=== PATIENT | male | born 1975 | race Caucasian/White ===

== ENCOUNTER → 2019-08-14 09:48 | Outpatient (CLI) | payer OTHER, SELFPAY ==
--- NOTE | 2019-08-14 09:53 | XR_ITS ---
PROCEDURE: XR HAND RT MIN 3V CLINICAL INDICATION: Rt hand FX patient punched a wall, pain and swelling COMPARISON: No exams were available for comparison FINDINGS: There is a boxer's type fracture distal metaphysis of the 5th metacarpal with mild at the fracture site. The remainder metacarpals in all of phalanges appear intact. The carpal bones appear grossly normal. There is mild diffuse soft tissue swelling dorsally of the hand. IMPRESSION: Boxer's type fracture 5th metacarpal Dictated by: Dr. Brandon Chi MD 08/14/2019 10:[address] Brandon Chi MD in [place] 08/14/2019 10:10
== END ==
PROVIDERS: Visit Provider Orthopaedic Surgery
DX: S62.331A Displaced fracture of neck of second metacarpal bone, left hand, initial encounter for closed fracture (principal)
CPT/HCPCS: 73130

== ENCOUNTER → 2019-08-14 12:01 | Outpatient (CLI) | payer OTHER, SELFPAY ==
[2019-08-14 12:28] LABS: Basophils # 0.1 K/mm3 (0-0.2); Basophils % 1.3 % (0.1-2.0); Eosinophils # 0.2 K/mm3 (0.0-0.4); Eosinophils % 2.7 % (0.1-12.0); Hematocrit 50.4 % (42.0-52.0); Hemoglobin 16.7 g/dL (14.1-18.0); Lymphocytes # 3.4 K/mm3 (0.7-4.5); Lymphocytes % 44.6 % (10-50); Mean Corpuscular HGB Conc 33.1 g/dL (31.8-35.4); Mean Corpuscular Hemoglobin 30.9 pg (27.0-31.2); Mean Corpuscular Volume 93.4 fl (80-94); Mean Platelet Volume 8.3 fl (7.4-10.4); Monocytes # 0.7 K/mm3 (0.1-1.0); Monocytes % 9.8 % (1.7-9.3); Neutrophils # 3.2 K/mm3 (1.8-7.8); Neutrophils % 41.5 % (37.0-80.0); Platelet Count 320 K/mm3 (142-424); Red Cell Distribution Width 12.6 % (11.5-17.5); White Blood Count 7.6 K/mm3 (4.8-10.8)
[2019-08-14 15:16] LABS: Alanine Aminotransferase 31 U/L (12-78); Albumin Level 4.3 gm/dL (3.4-5.0); Albumin/Globulin Ratio 1.2 (1.1-1.8); Alkaline Phosphatase 111 U/L (46-116); Anion Gap 13.4 mEq/L (5-15); Aspartate Amino Transferase 16 U/L (15-37); Bilirubin,Total 0.4 mg/dL (0.2-1.0); Blood Urea Nitrogen 10 mg/dL (7-18); Calcium 9.4 mg/dL (8.5-10.1); Carbon Dioxide 30 mmol/L (21.0-32.0); Chloride 101 mmol/L (98-107); Creatinine,Serum 0.92 mg/dL (0.70-1.30); Estimated Glomerular Filt Rate 89 ml/min (>60); GFR (African American) 108 ML/MIN (>60); Globulin 3.7 gm/dl (1.3-3.2); Glucose 94 mg/dL (74-106); Potassium 4.4 mmoL/L (3.5-5.1); Sodium 140 mmol/L (136-145)
== END ==
PROVIDERS: Visit Provider Orthopaedic Surgery
DX: Z01.818 Encounter for other preprocedural examination (principal); S62.331A Displaced fracture of neck of second metacarpal bone, left hand, initial encounter for closed fracture
CPT/HCPCS: 36415; 80053; 85025

== ENCOUNTER → 2019-08-27 09:39 | Outpatient (CLI) | payer OTHER, SELFPAY ==
--- NOTE | 2019-08-27 09:46 | XR_ITS ---
PROCEDURE: XR HAND RT MIN 3V CLINICAL INDICATION: Hand Fx FU Follow-up fracture COMPARISON: XR HAND RT MIN 3V from 08/07/2019 XR HAND RT MIN 3V from 08/14/2019 XR HAND RT 2V from 08/19/2019 FINDINGS: There is a splint present medially. In external pin has been placed longitudinal E into the 5th metacarpal stabilizing the distal fracture fragment with good alignment and only minimal palm all arm and radial displacement of the distal fracture fragment. IMPRESSION: Good alignment status post pinning 5th metacarpal fracture Dictated by: Saúl Merino MD 08/27/2019 10:15 Electronically signed by Saúl Merino MD in [place] 08/27/2019 10:15
== END ==
PROVIDERS: Visit Provider Orthopaedic Surgery
DX: S62.331A Displaced fracture of neck of second metacarpal bone, left hand, initial encounter for closed fracture (principal)
CPT/HCPCS: 73130

== ENCOUNTER → 2019-09-14 14:49 | Outpatient (CLI) | payer OTHER, SELFPAY ==
--- NOTE | 2019-09-14 14:54 | XR_ITS ---
PROCEDURE: XR HAND RT MIN 3V CLINICAL INDICATION: Hand Fracture Follow-up fracture COMPARISON: XR HAND RT MIN 3V from 08/07/2019 XR HAND RT MIN 3V from 08/14/2019 XR HAND RT 2V from 08/19/2019 XR HAND RT MIN 3V from 08/27/2019 FINDINGS: There remains good alignment of the minimally displaced fracture the distal aspect of the 5th metacarpal with a pen in place. There is developing callus formation. IMPRESSION: Healing 5th metacarpal fracture status post pin placement Dictated by: Saúl Merino MD 09/14/2019 16:23 Electronically signed by Saúl Merino MD in [place] 09/14/2019 16:23
== END ==
PROVIDERS: Visit Provider Orthopaedic Surgery
DX: S62.339A Displaced fracture of neck of unspecified metacarpal bone, initial encounter for closed fracture (principal)
CPT/HCPCS: 73130

== ENCOUNTER → 2019-10-05 14:00 | Outpatient (CLI) | payer OTHER, SELFPAY ==
--- NOTE | 2019-10-05 14:08 | XR_ITS ---
PROCEDURE: XR HAND RT MIN 3V CLINICAL INDICATION: Hand Fx COMPARISON: XR HAND RT MIN 3V from 08/14/2019 XR HAND RT 2V from 08/19/2019 XR HAND RT MIN 3V from 08/27/2019 XR HAND RT MIN 3V from 09/14/2019 FINDINGS: There has been interval removal of the reduction wire associated with the 5th metacarpal fracture. There is some interval callus formation of healing of the fracture but the fracture line remains. Overall bony alignment and positioning is not significantly changed. There are no new findings otherwise. The joint spaces are well-preserved. No significant degenerative/arthritic changes. No erosive changes evident. Other findings: IMPRESSION: Interval removal of reduction wire with healing 5th metacarpal fracture. Dictated by: Dev Burrell 10/05/2019 16:29 Electronically signed by Dev Burrell in [place] 10/05/2019 16:29
== END ==
PROVIDERS: Visit Provider Orthopaedic Surgery
DX: S62.306A Unspecified fracture of fifth metacarpal bone, right hand, initial encounter for closed fracture (principal)
CPT/HCPCS: 73130

== ENCOUNTER 2019-10-13 08:30 | Outpatient (RCR) | payer OTHER, SELFPAY | END 2019-10-13 08:35 | disposition home or self-care (01) | LOC: OT 08:30 | PROVIDERS: Visit Provider Orthopaedic Surgery | DX: S62.339A Displaced fracture of neck of unspecified metacarpal bone, initial encounter for closed fracture (principal) | CPT/HCPCS: 97110; 97140; 97166; 97760 ==

== ENCOUNTER → 2019-11-09 14:35 | Outpatient (CLI) | payer OTHER, SELFPAY ==
--- NOTE | 2019-11-09 14:37 | XR_ITS ---
PROCEDURE: XR HAND RT MIN 3V CLINICAL INDICATION: Hand FX Follow-up fracture COMPARISON: XR HAND RT 2V from 08/19/2019 XR HAND RT MIN 3V from 08/27/2019 XR HAND RT MIN 3V from 09/14/2019 XR HAND RT MIN 3V from 10/05/2019 FINDINGS: The oblique fracture at the distal aspect of the 5th metacarpal is less apparent. There is developing callus formation. There is good alignment. The joint spaces are well-preserved. No significant degenerative/arthritic changes. No erosive changes evident. Other findings:None. IMPRESSION: Good alignment healing right 5th metacarpal Dictated by: Saúl Merino MD 11/09/2019 15:33 Electronically signed by Saúl Merino MD in [place] 11/09/2019 15:33
== END ==
PROVIDERS: Visit Provider Orthopaedic Surgery
DX: S62.306A Unspecified fracture of fifth metacarpal bone, right hand, initial encounter for closed fracture (principal)
CPT/HCPCS: 73130

== ENCOUNTER 2020-07-14 00:09 | Emergency (ER) | payer OTHER, SELFPAY ==
--- NOTE | 2020-07-14 00:19 | PC.NURSE ---
PT came in the ED and advised that he thought he had ringworm on his shoulder. Asked patient to raise his shirt so I could examine the area. Pt raised his shirt and there was no robyn area or anything noted on his skin. I told pt that I did not see anything and asked him to come to the bathroom to look and show me exactly what he was talking about. Pt looked at his back in the mirror and didn't see anything. He advised he was worried that he had a ringworm and was contagious. But since he didn't see anything he decided he didn't need to be seen and left before being triaging.
[2020-07-14 00:46] VITALS: BP 0/0; PULSE 0; RESP 0; TEMP -17.7; TEMP 0; O2SAT 0
== END 2020-07-14 00:47 | disposition home or self-care (01) ==
PROVIDERS: Emergency Provider Emergency Medicine
DX: Z53.21 Procedure and treatment not carried out due to patient leaving prior to being seen by health care provider (principal)
CPT/HCPCS: 99211

== ENCOUNTER 2021-01-03 23:47 | Emergency (ER) | payer OTHER, SELFPAY ==
[2021-01-04 00:07] VITALS: BP 143/90; PULSE 80; RESP 16; TEMP 37; O2SAT 99; BMI 25.7
--- NOTE | 2021-01-04 00:27 | XR_ITS ---
PROCEDURE: XR FOREARM LT 2V CLINICAL INDICATION: posable foreign body COMPARISON: No exams were available for comparison FINDINGS: No fracture or dislocation. No lytic or blastic change. There is normal mineralization. The joint spaces are well-preserved. No significant degenerative/arthritic changes. No erosive changes evident. Other findings:No radiopaque foreign body apparent IMPRESSION: No acute findings. Dictated by: Súal Merino MD 01/04/2021 05:27 Saúl Merino MD in [place] 01/04/2021 05:27
--- NOTE | 2021-01-04 00:58 | HMH.EDUPEXT ---
ED Disposition Clinical Impression: Puncture wound Exposure to welding light Qualifiers: Encounter type: initial encounter Qualified Code(s): W89.0XXA - Exposure to welding light (arc), initial encounter Disposition: Home, Self-Care Condition on Discharge: Good Instructions: DI for Puncture Wound Additional Instructions: fluids and see pcp for follow up Referrals: PCP,No [Primary Care Provider] - - Critical Care Critical Care Time: No Attestation: On 01/03/21, the high probability of a clinically significant, sudden or life threatening deterioration of the following system(s) required my full and direct attention, intervention and personal management. The time I documented below is in addition to time spent performing reported procedures but includes the following listed in this critical care notation. Medical Decision Making - Medical Records Medical records reviewed: Yes: I reviewed the patient's medical records. - Juan M Inquiry Pt receiving controlled substance: No Vital Signs: 01/04/21 00:07 Temperature 98.6 F Temperature Source Oral Pulse Rate [Right] 80 Respiratory Rate 16 Blood Pressure [Right Arm] 143/90 H Blood Pressure Mean [Right Arm] 107 Blood Pressure Source [Right Arm] Automatic Cuff Blood Pressure Position [Right Arm] Sitting 02 Sat by Pulse Oximetry 99 Oxygen Delivery Method Room Air Orders (Tests/Meds): ORDERS Category Date Time Status XR forearm LT 2V Stat Exams 01/04/21 00:27 Taken - Radiology Data #1 Image(s): Forearm Image Reviewed: Yes I reviewed the patient's radiology image Preliminary Findings: No Fracture Seen Medical Decision Narrative: not cellulitis = has simple puncture wd and skin changes sec to u/v exposure Upper Extremity HPI - General Chief Complaint: Extremity Injury, Upper Stated Complaint: Left arm red,had piece of wire in arm Time Seen by Provider: 01/04/21 00:35 Mode of Arrival: Ambulatory Source of Information: Patient, Medical Record Limitations: No Limitations Description of Symptoms (Recalled from ER Triage Doc. by RN): Pt states he had a wire from a steel welder penatrate his left forearm and now has redness to the top of his forearm, pt unsure if it's from the puncture or burned from welding. - History of Present Illness HPI narrative: puncture wd lt ulnar volar aspect of wrist - but also reddness to opposite side of lt forearm MD complaint: injury to: left, forearm Onset (ago): hour(s) Other Extremity Injury: Left: wrist Other injuries: none Handedness: right Place: home Severity: mild Context: other (welding ) Associated symptoms: denies other symptoms - Related Data Home Medications Medication Instructions Recorded Confirmed No Known Home Medications 01/04/21 01/04/21 Allergies Allergy/AdvReac Type Severity Reaction Status Date / Time No Known Allergies Allergy Verified 11/09/19 15:11 [facility] History - Hepatitis A Screen Drug use history?: No High risk sexual behaviors?: No History of sexually transmitted infection?: No Currently employed?: No Childcare worker?: No Do you have indoor plumbing?: Yes Do you have electricity?: Yes Attestation statement:: This patient has been screened for Hepatitis A risk factors. I have reviewed the patient's past medical history: Yes Medical History: Denies:: Cancer, Diabetes Mellitus Type 1, Diabetes Mellitus Type 2, Internal Pacemaker, MRSA, Seizures Other Medical History: Denies: Blood Transfusion Reaction Laterality Cases: Bilateral: Tonsillectomy Other Surgeries: Yes: Appendectomy, Other. No: Pacemaker Amputation: No Fractures: Yes Comment: Right hand FX - Social History Smoking Status: Former smoker Tobacco Type: cigarettes # Packs/Day (cigarettes): 1 Alcohol Intake: never Substance Use Type: denies use Occupational Status: unemployed Housing: house Household Members: spouse Family Hx:: Heart Attack ROS Obtained: Yes All systems revi
[2021-01-04 01:21] VITALS: BP 136/82; PULSE 82; RESP 16; TEMP 37; O2SAT 98
== END 2021-01-04 01:23 | disposition home or self-care (01) ==
PROVIDERS: Emergency Provider Emergency Medicine
DX: S51.832A Puncture wound without foreign body of left forearm, initial encounter (principal); W89.0XXA Exposure to welding light (arc), initial encounter; Z23 Encounter for immunization; Z87.891 Personal history of nicotine dependence
CPT/HCPCS: 73090; 90471; 90714; 99282

== ENCOUNTER 2021-03-15 13:31 | Emergency (ER) | payer OTHER, SELFPAY ==
[2021-03-15 13:35] VITALS: BP 136/87; PULSE 78; RESP 19; TEMP 37.2; O2SAT 100; BMI 26.4
--- NOTE | 2021-03-15 14:42 | HMH.EDUTC ---
[facility] [place] Disposition Clinical Impression: Nausea vomiting and diarrhea Disposition: Home, Self-Care Condition on Discharge: Good Instructions: Diarrhea, DI for Nausea -- Adult, Nausea and Vomiting-Adult Additional Instructions: Drink extra fluids with and between meals. If you have difficulty drinking, try very small amounts of water or suck on ice chips. ? Avoid fruit juices, as these do not replace minerals and can actually increase diarrhea. ? Children and adults can use sports drinks to replenish electrolytes. Younger children and infants should use products formulated for children, like oral rehydration solutions. ? Eat food in small amounts and let your stomach recover. ? Get lots of rest. You may feel tired or weak. ? No greasy or fried foods for the next 24-48 hours BRAT diet Bananas Rice Apples and [place] ? Make sure to drink plenty of liquids ? Return if needed ? Straight to ER if any life threatening symptoms ? Zofran as prescribed ? You was given an outpatient order for diarrhea panel, please collect specimen and bring back to outpatient lab then call back to the [facility] or follow up with family doctor for results ? Follow up with family doctor in the next 48-72 hours if no improvement or any worsening of symptoms Prescriptions: Dicyclomine HCl [Bentyl 10mg capsule] 10 mg PO TID PRN #15 cap PRN Reason: Cramping Transmission Status: Pending to [id number] Ondansetron [Zofran 4mg ODT] 4 mg PO TIDP PRN #10 tab PRN Reason: Nausea And Vomiting Transmission Status: Pending to [id number] Referrals: Provider,Referral, MD [Primary Care Provider] - As needed Time of Disposition: 14:45 Medical Decision Making - Juan M Inquiry Pt receiving controlled substance: No Juan M was queried for this patient: No Vital Signs: 03/15/21 13:35 Temperature 99.0 F Temperature Source Oral Pulse Rate [Right Brachial] 78 Respiratory Rate 19 Blood Pressure [Right Arm] 136/87 Blood Pressure Mean [Right Arm] 103 Blood Pressure Source [Right Arm] Automatic Cuff Blood Pressure Position [Right Arm] Sitting 02 Sat by Pulse Oximetry 100 Oxygen Delivery Method Room Air Medical Decision Narrative: No vomiting or diarrhea since arrival [facility] [place] HPI - General Stated complaint: nausea, vomiting Time Seen by Provider: 03/15/21 14:42 Mode of Arrival: Ambulatory Source of Information: Patient Limitations: No Limitations Description of Symptoms (Recalled from Triage Doc. by RN): PATIENT C/O VOMITING AND DIARRHEA SINCE 0500 THIS MORNING HEENT Symptoms (Recalled from RN notes): No Resp Symptoms (Recalled from RN notes): No Skin Symptoms (Recalled from RN notes): No MS Symptoms (Recalled from RN notes): No Functional Status (Recalled from RN notes): WNL - History of Present Illness Provider Complaint: Patient states that his grandchild recently had a stomach bug and he was around it State that he woke up this morning with nausea vomiting and diarrhea States that he was concerned if he didnt come in and get something for the vomiting he would get dehydrated so he came in - Related Data Previous Rx's Medication Instructions Recorded Dicyclomine HCl [Bentyl 10mg 10 mg PO TID PRN #15 cap 03/15/21 capsule] Ondansetron [Zofran 4mg ODT] 4 mg PO TIDP PRN #10 tab 03/15/21 Allergies Allergy/AdvReac Type Severity Reaction Status Date / Time No Known Allergies Allergy Verified 11/09/19 15:11 - Worker's Comp Is this a Worker's Comp case?: No [facility] History - Hepatitis A Screen Drug use history?: No High risk sexual behaviors?: No History of sexually transmitted infection?: No Currently employed?: No Childcare worker?: No Do you have indoor plumbing?: Yes Do you have electricity?: Yes Attestation statement:: This patient has been screened for Hepatitis A risk factors. I have reviewed the patient's past medical history: Yes Medical History: Denies:: Cancer, Diabetes Mellitus Type 1, Diabet
[2021-03-15 14:47] VITALS: BP 136/87; PULSE 78; RESP 19; TEMP 37.2; O2SAT 100
== END 2021-03-15 14:51 | disposition home or self-care (01) ==
PROVIDERS: Emergency Provider Nurse Practitioner
DX: R11.2 Nausea with vomiting, unspecified (principal); R19.7 Diarrhea, unspecified; F17.210 Nicotine dependence, cigarettes, uncomplicated; Z87.891 Personal history of nicotine dependence
CPT/HCPCS: 99202; G0463

== ENCOUNTER 2021-06-10 10:36 | Emergency (ER) | payer OTHER, SELFPAY ==
[2021-06-10 10:36] VITALS: BP 130/71; PULSE 75; RESP 16; TEMP 36.9; O2SAT 99; BMI 29.0
--- NOTE | 2021-06-10 11:20 | HMH.EDUTC ---
[facility] [place] Disposition Clinical Impression: Exposure to COVID-19 virus Disposition: Home, Self-Care Condition on Discharge: Good Instructions: DI for COVID-19 (Suspected or Confirmed ), Preventing the Spread of Coronavirus Discharge Instructions Additional Instructions: Drink plenty of fluids. Take tylenol for pain or fever. Return if you begin to have difficulty breathing. Follow up with your regular doctor. GO TO THE ER FOR ANY WORSENING SYMPTOMS Quarantine until you know the results of your covid-19 test. If it is positive, the health department should call you and give you further instructions about your length of Quarantine and other thing. Referrals: Jacob Altamirano MD [Primary Care Provider] - Time of Disposition: 11:22 Medical Decision Making - Medical Records Medical records reviewed: No: I reviewed the patient's medical records. - Juan M Inquiry Pt receiving controlled substance: No Vital Signs: 06/10/21 10:36 06/10/21 12:00 Temperature 98.4 F 98.4 F Temperature Source Oral Pulse Rate 75 Pulse Rate [Right Radial] 75 Respiratory Rate 16 16 Blood Pressure 130/71 Blood Pressure [Right Arm] 130/71 Blood Pressure Mean [Right Arm] 90 Blood Pressure Source [Right Arm] Automatic Cuff Blood Pressure Position [Right Arm] Sitting 02 Sat by Pulse Oximetry 99 Oxygen Delivery Method Room Air [facility] [place] HPI - General Stated complaint: wants Covid test Time Seen by Provider: 06/10/21 11:20 - History of Present Illness Provider Complaint: He was exposed to covid-19 by his grand child coming to his house and he was around her. His exposure happened 4 days ago. He denies any symptoms so far. He has not been vaccinated. - Related Data Previous Rx's Medication Instructions Recorded Dicyclomine HCl [Bentyl 10mg 10 mg PO TID PRN #15 cap 03/15/21 capsule] Ondansetron [Zofran 4mg ODT] 4 mg PO TIDP PRN #10 tab 03/15/21 Allergies Allergy/AdvReac Type Severity Reaction Status Date / Time No Known Allergies Allergy Verified 11/09/19 15:11 [facility] History - Hepatitis A Screen Attestation statement:: This patient has been screened for Hepatitis A risk factors. I have reviewed the patient's past medical history: Yes Medical History: Denies:: Cancer, Diabetes Mellitus Type 1, Diabetes Mellitus Type 2, Internal Pacemaker, MRSA, Seizures Other Medical History: Denies: Blood Transfusion Reaction Laterality Cases: Bilateral: Tonsillectomy Other Surgeries: Yes: Appendectomy, Other. No: Pacemaker Amputation: No Fractures: Yes Comment: Right hand FX - Social History Smoking Status: Former smoker Tobacco Type: cigarettes # Packs/Day (cigarettes): 1 Alcohol Intake: never Substance Use Type: denies use Occupational Status: other Housing: house Household Members: spouse Family Hx:: Heart Attack ROS Obtained: Yes All systems reviewed & no additional complaints - Constitutional Constitutional: Reports system reviewed and no additional complaints, except as docu - Eyes Eyes: Reports system reviewed and no additional complaints, except as docu - ENT Ears, Nose, Mouth, and Throat: Reports system reviewed and no additional complaints, except as docu - Cardiovascular Cardiovascular: Reports system reviewed and no additional complaints, except as docu - Respiratory Respiratory: Reports system reviewed and no additional complaints, except as docu - Gastrointestinal Gastrointestingal: Reports: system reviewed and no additional complaints, except as docu Physical Exam - General General appearance: alert, in no apparent distress - Head Head exam: atraumatic, normocephalic, normal inspection - Eye Eye exam: Present: normal appearance, PERRL, EOMI - ENT ENT exam: Present: normal exam, normal oropharynx, mucous membranes moist, TM's normal bilaterally, normal external ear exam - Neck Neck exam: Present: normal inspection, full ROM, trachea midline. Absent:
[2021-06-10 12:00] VITALS: BP 130/71; PULSE 75; RESP 16; TEMP 36.9; O2SAT 99
== END 2021-06-10 12:00 | disposition home or self-care (01) ==
PROVIDERS: Emergency Provider Nurse Practitioner Family; PCP Emergency Medicine
DX: Z20.822 Contact with and (suspected) exposure to COVID-19 (principal)
CPT/HCPCS: 99202; G0463; U0003

== ENCOUNTER 2022-09-24 01:59 | Emergency (ER) | payer OTHER, SELFPAY ==
[2022-09-24 02:00] VITALS: BP 146/101; PULSE 110; RESP 18; TEMP 36.9; O2SAT 97; BMI 27.7
[2022-09-24 02:24] LABS: Basophils # 0.1 K/mm3 (0-0.2); Basophils % 0.8 % (0.1-2.0); Eosinophils # 0.2 K/mm3 (0.0-0.4); Eosinophils % 2.2 % (0.1-12.0); Hematocrit 52.2 % (42.0-52.0); Hemoglobin 17.6 g/dL (14.1-18.0); Lymphocytes # 2.7 K/mm3 (0.7-4.5); Lymphocytes % 24.7 % (10-50); Mean Corpuscular HGB Conc 33.8 g/dL (31.8-35.4); Mean Corpuscular Hemoglobin 30.6 pg (27.0-31.2); Mean Corpuscular Volume 90.6 fl (80-94); Mean Platelet Volume 8.4 fl (7.4-10.4); Monocytes # 1.1 K/mm3 (0.1-1.0); Monocytes % 10.3 % (1.7-9.3); Neutrophils # 6.9 K/mm3 (1.8-7.8); Platelet Count 352 K/mm3 (142-424); Red Blood Count 5.76 M/mm3 (4.60-6.20); Red Cell Distribution Width 12.9 % (11.5-17.5); White Blood Count 11.1 K/mm3 (4.8-10.8)
[2022-09-24 02:30] LABS: Chloride 107 mmol/L (98-107); Potassium 4.2 mmoL/L (3.5-5.1); Sodium 142 mmol/L (136-145)
[2022-09-24 02:33] LABS: Alanine Aminotransferase 53 U/L (12-78); Albumin/Globulin Ratio 1.3 (1.1-1.8); Alkaline Phosphatase 124 U/L (38-126); Anion Gap 17.2 mEq/L (5-15); Aspartate Amino Transferase 48 U/L (17-59); Bilirubin,Total 0.4 mg/dl (0.2-1.3); Blood Urea Nitrogen 15 mg/dl (9-20); Carbon Dioxide 22 mmol/L (22.0-30.0); Creatinine Clearance Estimated 95 mL/min (50-200); Estimated Glomerular Filt Rate 59 ml/min (>60); GFR (African American) 72 ML/MIN (>60)
[2022-09-24 02:34] LABS: Calcium 9.7 mg/dl (8.4-10.2); Glucose 142 mg/dl (74-100)
--- NOTE | 2022-09-24 03:00 | HMH.EDNVD ---
Discharge Plan Disposition Patient Disposition: Home, Self-Care Prescriptions Prescriptions: New ondansetron HCl 4 mg Tablet 4 mg PO Q8H PRN (Reason: Nausea) Qty: 20 0RF No Action ondansetron 4 MG tablet,disintegrating 4 mg PO TIDP PRN (Reason: Nausea And Vomiting) Qty: 10 0RF dicyclomine 10 MG capsule 10 mg PO TID PRN (Reason: Cramping) Qty: 15 0RF Referrals Follow up/Referrals: Jacob Altamirano MD [Primary Care Provider] - See instructions Clinical Impressions Clinical Impression: Gastroenteritis Instructions Patient Instructions: DI for Diarrhea and Traveler's Diarrhea -- Adult Discharge ED Provider: Jacob Altamirano Nausea/Vomiting/Diarrhea HPI General Chief complaint: Nausea/Vomiting/Diarrhea Stated complaint: vomiting, diarrhea, light-headed Time Seen by Provider: 09/24/22 03:00 Mode of Arrival: Ambulatory Source of Information: Patient and Medical Record Limitations: No Limitations Description of Symptoms (Recalled from ER Triage Doc. by RN): pt c/o n/v/d and cramping x 3 days History of Present Illness HPI Narrative: over the last 3 days nonbldy diarrhea with vomiting but no sig abd pain or known exposure or raw food - complaint: nausea, vomiting and diarrhea Onset (ago): day(s) Associated Abdominal Pain: No Severity: moderate Associated symptoms: denies other symptoms Related Data Previous Rx's Medication Instructions Recorded dicyclomine 10 mg capsule 10 mg PO TID PRN Cramping #15 caps 03/15/21 ondansetron 4 mg disintegrating 4 mg PO TIDP PRN Nausea And 03/15/21 tablet Vomiting #10 tabs ondansetron HCl 4 mg tablet 4 mg PO Q8H PRN Nausea #20 tabs 09/24/22 Allergies Allergy/AdvReac Type Severity Reaction Status Date / Time No Known Allergies Allergy Verified 11/09/19 15:11 PFSH PFSH Social History Smoking Status: Former smoker second hand exposure: Yes alcohol intake: never substance use type: denies use current occupational status: other Travel in the last 8 weeks: None household members: spouse housing: house current occupational exposures/hazards: No caffeine: Yes ROS Obtained: Yes All systems reviewed & no additional complaints except as documented Physical Exam General General appearance: alert Head Head exam: normocephalic Eye Eye exam: Present PERRL and EOMI; Absent scleral icterus or jaundice ENT ENT exam: Present mucous membranes moist Neck Neck exam: Present trachea midline Respiratory Respiratory exam: Present normal lung sounds bilaterally; Absent respiratory distress Cardiovascular Cardiovascular exam: Present regular rate Abdominal Exam Abdominal exam: Present soft; Absent tenderness Extremities Exam Extremities exam: Present full ROM Neurological Exam Neurological exam: Present alert, oriented X3 and CN II-XII intact; Absent motor sensory deficit Psychiatric Psychiatric exam: Present normal affect Skin Skin exam: Present intact Lymphatic Lymphatic Findings: no adenopathy Medical Decision Making Medical Records Medical records reviewed: Yes I reviewed the patient's medical records. Juan M Inquiry Pt receiving controlled substance: No Vital Signs: 09/24/22 02:00 Temperature 98.4 F Temperature Source Oral Pulse Rate [Right] 110 H Respiratory Rate 18 Blood Pressure [Right Arm] 146/101 H Blood Pressure Mean [Right Arm] 116 02 Sat by Pulse Oximetry 97 Lab Data Lab results reviewed: Yes I reviewed the patient's lab results. Lab Results 09/24/22 02:14: WBC 11.1 H, RBC 5.76, Hgb 17.6, Hct 52.2 H, MCV 90.6, MCH 30.6, MCHC 33.8, RDW 12.9, Plt Count 352, MPV 8.4, Neut % (Auto) 62.0, Lymph % (Auto) 24.7, [place] % (Auto) 10.3 H, Eos % (Auto) 2.2, Baso % (Auto) 0.8, Neut # (Auto) 6.9, Lymph # (Auto) 2.7, [place] # (Auto) 1.1 H, Eos # (Auto) 0.2, Baso # (Auto) 0.1 09/24/22 02:14: Sodium 142, Potassium 4.2, Chloride 107, Carbon Dioxide 22, Anion Gap 17.2 H, BUN 15, Creatinine 1.30 H, Estimated Creat Clear 95,
[2022-09-24 03:28] VITALS: BP 146/85; PULSE 90; RESP 18; TEMP 36.9; O2SAT 97
== END 2022-09-24 03:35 | disposition home or self-care (01) ==
PROVIDERS: Emergency Provider Emergency Medicine; PCP Emergency Medicine
DX: K52.9 Noninfective gastroenteritis and colitis, unspecified (principal)
CPT/HCPCS: 80053; 85025; 96365; 96366; 96375; 99284; J2405

== ENCOUNTER 2023-11-15 18:15 | Emergency (ER) | payer OTHER, SELFPAY ==
[2023-11-15 18:20] VITALS: BP 138/89; PULSE 103; RESP 20; TEMP 37.2; O2SAT 97; BMI 30.1
--- NOTE | 2023-11-15 18:22 | ED_ITS ---
Discharge Plan Disposition Patient Disposition: Home, Self-Care Condition: Good Prescriptions Prescriptions: New promethazine 25 mg tablet 25 mg PO TID PRN (Reason: nausea and vomiting) Qty: 10 0RF Referrals Follow up/Referrals: Liborio Valdes DO [Primary Care Provider] - See instructions Clinical Impressions Clinical Impression: Acute viral syndrome Instructions Patient Instructions: DI for Viral Syndrome Discharge ED Provider: [facility] [place] HPI General Stated complaint: ba nausea chills diarrhea muscle pain Time Seen by Provider: 11/15/23 18:32 History of Present Illness Provider Complaint: Fever, body aches, chills, nausea, diarrhea X 2-3 days. Advil cold and sinus provides some relief for a little bit. Onset (ago): day(s) Relieving factors: none Exacerbating factors: none Associated symptoms: cough, fever/chills, headaches and nausea/vomiting Treatments prior to arrival: NSAID Related Data Previous Rx's Medication Instructions Recorded promethazine 25 mg tablet 25 mg PO TID PRN nausea and 11/15/23 vomiting #10 tabs Allergies Allergy/AdvReac Type Severity Reaction Status Date / Time No Known Allergies Allergy Verified 01/02/23 12:58 [facility] Disclaimer: The information contained in this section may have been updated after the patient was seen, as this information can be updated by other users. Surgical History (Updated 01/02/23 @ 13:08 by REUBEN Khan) Hx of appendectomy Hx of tonsillectomy Social History Smoking Status: Former smoker tobacco type: cigarettes packs per day: 1 second hand exposure: Yes alcohol intake: never substance use type: denies use current occupational status: other Travel in the last 8 weeks: None household members: spouse housing: house current occupational exposures/hazards: No caffeine: Yes ROS Obtained: Yes All systems reviewed & no additional complaints except as documented Constitutional Constitutional: Reports body ache, Reports chills, Reports fever(s) and Reports malaise Gastrointestinal Gastrointestingal: Reports loose stools and nausea Physical Exam General General appearance: alert Head Head exam: normocephalic Eye Eye exam: Present PERRL and EOMI; Absent scleral icterus or jaundice ENT ENT exam: Present mucous membranes moist Neck Neck exam: Present trachea midline Respiratory Respiratory exam: Present normal lung sounds bilaterally; Absent respiratory distress Cardiovascular Cardiovascular exam: Present regular rate Abdominal Exam Abdominal exam: Present soft; Absent tenderness Extremities Exam Extremities exam: Present full ROM Neurological Exam Neurological exam: Present alert, oriented X3 and CN II-XII intact; Absent motor sensory deficit Psychiatric Psychiatric exam: Present normal affect Skin Skin exam: Present intact Lymphatic Lymphatic Findings: no adenopathy Medical Decision Making Juan M Inquiry Pt receiving controlled substance: No Lab Data Lab results reviewed: Yes I reviewed the patient's lab results.
[2023-11-15 18:39] VITALS: BP 138/89; PULSE 103; RESP 20; TEMP 37.2; O2SAT 97
[2023-11-15 18:44] LABS: UTC Influenza A Antigen Negative (Negative); UTC Influenza B Antigen Negative (Negative)
[2023-11-15] MEDS: methylPREDNISolone ACETATE 80MG/ML VIAL 80 MG IM (18:55)
[2023-11-15] MEDS: PROMETHAZINE 25MG TABLET 25 MG PO (18:55)
== END 2023-11-15 19:05 | disposition home or self-care (01) ==
PROVIDERS: Emergency Provider Physician Assistant; PCP Internal Medicine
DX: R11.2 Nausea with vomiting, unspecified (principal); R05.9 Cough, unspecified; R50.9 Fever, unspecified; R51.9 Headache, unspecified; R53.81 Other malaise; B34.9 Viral infection, unspecified; Z87.891 Personal history of nicotine dependence
CPT/HCPCS: 87804; 96372; 99212; 99214; G0463; J1040